=== PATIENT | male | born 1985 | race African-American/Black ===

== ENCOUNTER 2017-04-12 06:02 | Emergency (ER) | payer MEDICAID ==
[~2017-04-12] VITALS: Ht 182.9 cm; Wt 116.0 kg
[2017-04-12] MEDS ORDERED: ACETAMINOPHEN 500MG TABLET PO ONE (08:45)
[2017-04-12 10:00] VITALS: BP 122/69
[2017-04-12] MEDS ORDERED: BACITRACIN ZINC OINT UDPKT TOP ONE (11:30)
== END 2017-04-12 12:01 | disposition home or self-care (01) ==
LOC: ER 06:23
DX: S01.442A Puncture wound with foreign body of left cheek and temporomandibular area, initial encounter (principal); S01.03XA Puncture wound without foreign body of scalp, initial encounter; F17.210 Nicotine dependence, cigarettes, uncomplicated; F12.10 Cannabis abuse, uncomplicated; X95.01XA Assault by airgun discharge, initial encounter; W45.8XXA Other foreign body or object entering through skin, initial encounter; Y93.89 Activity, other specified; Y92.89 Other specified places as the place of occurrence of the external cause; Y99.8 Other external cause status
CPT/HCPCS: 70110; 70450; 99284